=== PATIENT | female | born 1945 | race Hispanic/Latino ===

== ENCOUNTER → 2018-06-25 | Day surgery (SDC) | payer MEDICARE ==
--- NOTE | 2018-06-21 12:13 | Diagnostic Imaging Report ---
Exam: KUB - 2 views Clinical History: Renal stone symptoms on left Comparison: None. Findings: Nonobstructive bowel gas pattern. There is abundant stool throughout the colon. Bowel gas partially obscures visualization of the kidneys. There are two calcifications overlying the right kidney measuring 7 mm each. No evidence of calcification overlying the left kidney or the expected location of the ureters. No acute osseous abnormality. Mild degenerative changes of the lower lumbar spine and bilateral hips. Please refer to the concurrently performed chest radiograph for intrathoracic findings. Impression: Two 7 mm calcifications overlying the right kidney, likely representing renal stones. No evidence of ureteral or left sided renal stone, although bowel gas partially limits evaluation of the left kidney. Signed by: Dr. Toyin Torrez MD on 06/21/2018 12:10 PM
[2018-06-21 12:18] LABS: BASOPHILS % 0.3 % (0.0-1.0); EOSINOPHILS # (AUTO) 0.2 (0.0-0.4); EOSINOPHILS % 1.7 % (0.0-6.0); HEMATOCRIT 43.9 % (34.2-44.1); HEMOGLOBIN 12.8 g/dL (12.0-16.0); LYMPHOCYTES # (AUTO) 2.2 (1.0-3.2); LYMPHOCYTES % 24.4 % (18.0-39.1); MEAN CORPUSCULAR HEMOGLOBIN 25.9 pg (28-32); MEAN CORPUSCULAR HGB CONC 29.2 g/dL (31-35); MEAN CORPUSCULAR VOLUME 88.7 fL (81-99); MONOCYTES # (AUTO) 0.5 (0.2-0.8); NEUTROPHILS # (AUTO) 6.1 (2.1-6.9); PLATELET COUNT 245 x10e3/uL (140-360); RED BLOOD COUNT 4.95 x10e6/uL (3.6-5.1); RED CELL DISTRIBUTION WIDTH 16.6 % (11.7-14.4)
[2018-06-21 12:28] LABS: ANION GAP 15.5 mmol/L (8-16); BLOOD UREA NITROGEN 31 mg/dL (7-26); BUN/CREATININE RATIO 37 (6-25); CALCIUM 9.9 mg/dL (8.4-10.2); CARBON DIOXIDE 22 mmol/L (22-29); CHLORIDE 107 mmol/L (98-107); CREATININE, SERUM 0.83 mg/dL (0.57-1.11); EST GLOMERULAR FILTRATION RATE > 60 ML/MIN (60-); GLUCOSE 92 mg/dL (74-118); POTASSIUM 4.5 mmol/L (3.5-5.1); SODIUM 140 mmol/L (136-145)
--- NOTE | 2018-06-21 12:53 | Diagnostic Imaging Report ---
EXAMINATION: CHEST 2 VIEWS INDICATION: Abdominal pain, suspected kidney stone. COMPARISON: None FINDINGS: TUBES and LINES: None. LUNGS: Lungs are well inflated. There is no evidence of pneumonia or pulmonary edema. Mild linear opacity in the left lower lung could represent subsegmental atelectasis or scarring. PLEURA: Mild blunting of the right costophrenic angle could represent scarring or trace effusion. No evidence of pneumothorax. HEART AND MEDIASTINUM: The cardiomediastinal silhouette is unremarkable. BONES AND SOFT TISSUES: No acute osseous abnormality. UPPER ABDOMEN: No free air under the diaphragm. IMPRESSION: No acute radiographic abnormality. Signed by: Dr. Toyin Torrez MD on 06/21/2018 12:49 PM
[~2018-06-25] MED LIST: ATORVASTATIN CA10 MG PO; BELLADONNA/OPIUM 30 MG SUPP RC ONE; CEFTRIAXONE SOD 1 GM/NS 50 ML 50 ML IV ONE; CYMBALTA30 MG; DEXAMETHASONE SOD PHOS INJ 4 MG/ML VIAL ONE; GLIMEPIRIDE2 MG PO; IOPAMIDOL 610MG/1ML 300 MG/ML VIAL IV ONE; JANUVIA100 MG PO; LABETALOL HCL 5 MG/ML 20ML VIAL ONE; LIDOCAINE HCL 2% LOCAL INJ 5 ML SDV VIAL INJ ONE; LISINOPRIL10 MG PO; ONDANSETRON HCL INJ 2MG/ML 2ML 2 MG/ML VIAL ONE; PIOGLITAZONE HC45 MG PO; PROPOFOL IV EMULSION 10 MG/ML 20 ML VIAL ONE; SEVOFLURANE INHAL SOLN 250 ML PEN BTL ONE
[2018-06-25 16:15] VITALS: BP 121/67
--- NOTE | 2018-07-12 11:53 | Operative Report ---
DATE OF PROCEDURE: 06/25/2018 SURGEON: Butch Wilkerson MD PREOPERATIVE DIAGNOSES: 1. Right nephrolithiasis. 2. Urinary tract infection. 3. Mixed-type urinary incontinence. POSTOPERATIVE DIAGNOSES: 1. Right nephrolithiasis. 2. Urinary tract infection. 3. Mixed-type urinary incontinence. 4. Atrophic (senile) vaginitis. OPERATIONS PERFORMED: 1. Right-sided extracorporeal shock wave lithotripsy (separate-staged procedure performed for nephrolithiasis). 2. Cystourethroscopy with bilateral ureteral catheterization and retrograde ureteropyelography (separate-staged procedure performed for the urinary tract infections). 3. Interpretation of retrograde ureteropyelography. 4. Supervision of fluoroscopy, no radiologist present. ANESTHESIA: General. COMPLICATIONS: None. CLINICAL SUMMARY: Khushbu Callaway is a 73-year-old woman with the above preoperative diagnoses. She was brought for the above procedures. She is aware of the risks of bleeding, infection, injury to adjacent structures, and need for additional procedures, and elected to proceed. OPERATIVE PROCEDURE IN DETAIL: Informed consent was verified. Khushbu Callaway was properly identified, taken to the operating room, and placed on the lithotripsy table in supine position. Anesthesia was uneventfully begun. The patient's right nephrolithiasis was localized with biplanar fluoroscopy. A total of 3000 shocks were delivered to the 7 mm stone located in the right kidney. Excellent fragmentation was noted. The patient was carefully and gently repositioned into dorsal lithotomy position with all pressure points well padded. Her genitalia were prepared and draped in the usual fashion. A 22.5-Wolof cystoscope sheath with an obturator in place was atraumatically inserted into the patient's urethra and the bladder was drained. Panendoscopy revealed grade 1 trabeculations, but no tumors, no stones, and no diverticula and normally positioned and configured ureteral orifices were identified. The ureteral catheter was used to cannulate each ureter and retrograde ureteropyelograms were performed. Interpretation of Retrograde Ureteropyelography: Contrast was instilled in retrograde fashion bilaterally. There were no tumors, no stones, and no diverticula. Unobstructed drainage was observed bilaterally fluoroscopically. On the left hand side, there were no tumors, no stones, no diverticula, and unobstructed drainage was observed fluoroscopically. On the right-hand side, there was filling defect corresponding to the location, where we performed lithotripsy. These were attributed to stone fragments as well as blood clots from the lithotripsy. Unobstructed drainage was observed fluoroscopically and there was no hydronephrosis. The patient's bladder was then drained and cystoscope was withdrawn. Pelvic examination under anesthesia revealed atrophic (senile) vaginitis. No suspicious mucosal lesions were identified. There were no abnormal pelvic masses that could be appreciated. The patient was then uneventfully reversed from anesthesia and taken to the recovery room in stable condition. There were no complications to the procedure. She tolerated the procedure well. Exclusive postoperative instructions were given. We will follow the patient up in the office, and of course on a long-term basis. Butch Wilkerson MD OH/MODL /[id number] cc: Vashti Bullock MD
--- OUTSIDE RECORDS SUMMARY | 2018-07-14 10:04 | XMS REPORT ---
Author Author [facility] Address Unknown Phone Unavailable Care Team Providers Care Client Finance Analyst Name Role Phone STEPHANIE ANN CARDONA PP Unavailable ISAÍAS ARELLANO Unavailable Unavailable Payers Payer Name Policy Type Policy Number Effective Date Expiration Date Problems This patient has no known problems. Allergies, Adverse Reactions, Alerts This patient has no known allergies or adverse reactions. Medications This patient has no known medications. Encounters Start Date/Time End Date/Time Encounter Type Admission Type Attending [facility] Care Facility Care Department Encounter ID 2017-08-03 14:31:00 2017-08-03 14:31:00 Outpatient C [facility] MED [id number] Results Test Description Test Time Test Comments Text Results Atomic Results Result Comments CHEST 2 VIEWS 2018-06-21 12:46:00 [facility] [address] [place] [address] Patient Name: ADELFO SEWELL MR #: [id number] : 1945 Age/Sex: 73/F Req #: [id number] Adm Physician: Ordered by: ISAÍAS ARELLANO MD Report #: [id number] Location: OR Room/Bed: Procedure: [id number] DX/CHEST 2 VIEWS Exam Date: 06/21/18 Exam Time: 1150 REPORT STATUS: Signed EXAMINATION: CHEST 2 VIEWS INDICATION: Abdominal pain, suspected kidney stone. COMPARISON: None FINDINGS: TUBES and LINES: None. LUNGS: Lungs are well inflated. There is no evidence of pneumonia or pulmonary edema. Mild linear opacity in the left lower lung could represent subsegmental atelectasis or scarring. PLEURA: Mild blunting of the right costophrenic angle could represent scarring or trace effusion. No evidence of pneumothorax. HEART AND MEDIASTINUM: The cardiomediastinal silhouette is unremarkable. BONES AND SOFT TISSUES: No acute osseous abnormality. UPPER ABDOMEN: No free air under the diaphragm. IMPRESSION: No acute radiographic abnormality. Signed by: Dr. Sarah Polanco MD on 06/21/2018 12:49 PM Dictated By: SARAH POLANCO MD 1249 Transcribed By: KAI on 06/21/18 1249 COPY TO: ISAÍAS ARELLANO MD ABDOMEN-1VIEW (KUB) 2018-06-21 12:05:00 [place] [address] Patient Name: ADELFO SEWELL MR #: [id number] : 1945 Age/Sex: 73/F Req #: [id number] Adm Physician: Ordered by: ISAÍAS ARELLANO MD Report #: [id number] Location: OR Room/Bed: Procedure: [id number] DX/ABDOMEN-1VIEW (KUB) Exam Date: 06/21/18 Exam Time: 1150 REPORT STATUS: Signed Exam: KUB - 2 views Clinical History: Renal stone symptoms on left Comparison: None. Findings: Nonobstructive bowel gas pattern. There is abundant stool throughout the colon. Bowel gas partially obscures visualization of the kidneys. There are two calcifications overlying the right kidney measuring 7 mm each. No evidence of calcification overlying the left kidney or the expected location of the ureters. No acute osseous abnormality. Mild degenerative changes of the lower lumbar spine and bilateral hips. Please refer to the concurrently performed chest radiograph for intrathoracic findings. Impression: Two 7 mm calcifications overlying the right kidney, likely representing renal stones. No evidence of ureteral or left sided renal stone, although bowel gas partially limits evaluation of the left kidney. Signed by: Dr. Sarah Polanco MD on 06/21/2018 12:10 PM Dictated By: SARAH POLANCO MD 1210 Transcribed By: KAI on 06/21/18 1210 COPY TO: ISAÍAS ARELLANO MD PENG MAMMO SCREENING SAUL W/CAD 2017-08-13 16:07:35 [facility] MAMMO SCREENING SAUL W/CADZ12.39: ENCOUNTER FOR [facility] SCREENING FOR MALIGNANT NEOPLASM OF BREAST.Dictation Location: [id number] Information: Screening mammogram.Technique: Bilateral digital mammogram with computer assisted diagnosis. Bilateral CC and MLO views were obtained.Comparison: None.Findings: There are scattered areas of fibroglandular density. Scattered benigntype and vascular calcifications are present bilaterally. There are nosuspicious masses or microcalcifications.IMPRESSION: No mammographic evidence of malignancy.ACR BI- RADS CATEGORY: 2-BENIGN RECOMMENDATION: FOLLOW UP MAMMOGRAM IN ONE YEAR XR SHOULDER 2+V.COMPLETE-RIGHT 2017-08-03 17:16:16 XR SHOULDER 2+V.COMPLETE- RIGHTLOCATION: R16 INDICATION:M25.519: PAIN IN UNSPECIFIED SHOULDERCOMPARISON: None.DISCUSSION:Frontal internal/external rotation and Y view radiographs of the rightshoulder were submitted for interpretation (4 total)Mild bone demineralization limits evaluation. No definite acute fracture or dislocation is seen. Mildly displaced fractures of the right fourth rib (posteriorly andlaterally) appear old.Mild to moderate acromioclavicular and glenohumeral arthrosis arepresent.Mild multilevel spondylosis is partially visualized.Mild aortic calcifications are partially visualized.IMPRESSION:1. No definite acute osseous abnormalities. 2. Mildly displaced fractures of the right fourth rib (posteriorly andlaterally) appear old.3. 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
--- OUTSIDE RECORDS SUMMARY | 2018-07-14 10:04 | XMS REPORT | Clinical Summary ---
Author Author [facility] Address Unknown Phone Unavailable Care Team Providers Care Supervisor Process Testing Name Role Phone Vashti Bullock MD PCP Allergies No Known Allergies Medications End Date Status Medication Sig Dispensed Refills Start Date Active glimepiride (AMARYL) 2 MG TK 1 T PO QAM 0 tablet 6 Active atorvastatin (LIPITOR) 10 TK 1 T PO HS 0 MG tablet 6 Active enalapril (VASOTEC) 20 MG TK 1 T PO QAM 0 tablet 6 Active aspirin (ECOTRIN) 81 MG TK 1 T PO QD 0 enteric coated tablet 6 Active cromolyn (OPTICROM) 4 % 0 ophthalmic solution 6 Active PRECISION XTRA TEST strip 0 test strips 6 Active LANCETS,ULTRA THIN misc USE TID 1 6 Active omega-3 acid ethyl esters TK 2 CS PO 0 (LOVAZA) 1 gram capsule BID 6 Active JANUMET XR 100-1,000 mg TK 1 T PO QAM 0 tablet, ER multiphase 24 6 hr Active ergocalciferol TK ONE C PO 0 (ERGOCALCIFEROL) 50,000 ONCE A MONTH 6 unit capsule Active mirabegron (MYRBETRIQ) 50 Take 1 tablet 90 tablet 2 mg tablet extended (50 mg total) 6 release 24 hrIndications: by mouth Urge incontinence of daily. urine Active ondansetron (ZOFRAN) 8 MG TK 1 T PO TID 0 tablet 7 Active VOLTAREN 1 % gel JIM EXT AA 0 QID 6 Active gabapentin (NEURONTIN) 0 300 mg capsule 7 Active MICRO THIN LANCETS 33 0 gauge misc 7 Active meloxicam (MOBIC) 15 mg TK 1 T PO QAM 0 tablet 7 Active sulfamethoxazole-trimetho 0 prim (BACTRIM DS) 800-160 7 mg per tablet 08/18/2017 estradiol (ESTRACE) 0.01 Apply nightly 42.5 g 11 % (0.1 mg/gram) vaginal for 2 weeks, 7 cream then 2 times per week Active Problems Problem Noted Date Urge incontinence of urine 12/24/2015 Kidney stones 12/24/2015 Cystocele 12/24/2015 Social History Date Tobacco Use Types Packs/Day Years Used Never Smoker Alcohol Use Drinks/Week oz/Week Comments No Sex Assigned at Date Recorded Not on file Industry Job Start Date Occupation Not on file Not on file Not on file Travel End Travel History Travel Start No recent travel history available. Last Filed Vital Signs Not on file Plan of Treatment Health Maintenance Due Date Last Done Comments BREAST CANCER SCREENING 1997 COLON CANCER SCREENING 1997 SHINGLES VACCINES (#1) 1997 65+ PNEUMOCOCCAL VACCINE 2012 (1 of 2 - PCV13) PNEUMOCOCCAL 2012 POLYSACCHARIDE VACCINE AGE 65 AND OVER INFLUENZA VACCINE 12/16/2017 Results Not on fileafter 07/13/2017 Insurance Payer Benefit Subscriber ID Type Phone Address Plan / Group AETNA MEDICARE AETNA xxxxxxxx HMO MEDICARE HMO/PPO [facility] Advance Directives Patient has advance care planning documents on file. For more information, soo e contact: [address] [place] [address]
== END | disposition home or self-care (01) ==
LOC: OR 10:54
PROVIDERS: ATTEND Urology
DX: N20.0 Calculus of kidney (principal); N39.0 Urinary tract infection, site not specified; N32.81 Overactive bladder; N39.46 Mixed incontinence; N95.2 Postmenopausal atrophic vaginitis; N36.41 Hypermobility of urethra; N81.89 Other female genital prolapse; N32.89 Other specified disorders of bladder; I10 Essential (primary) hypertension; E11.9 Type 2 diabetes mellitus without complications; E78.00 Pure hypercholesterolemia, unspecified; Z01.810 Encounter for preprocedural cardiovascular examination; Z01.818 Encounter for other preprocedural examination; Z79.84 Long term (current) use of oral hypoglycemic drugs; Z68.31 Body mass index [BMI] 31.0-31.9, adult
CPT/HCPCS: 36415 ×2; 50590; 71046; 74018; 80048; 82948; 83970; 84550; 85025; 93005; J0696; J1100; J2001; J2405; J2704; J3490; Q9967

== ENCOUNTER → 2018-12-10 | Day surgery (SDC) | payer MEDICARE ==
[2018-12-08 09:16] LABS: BASOPHILS % 0.1 % (0.0-1.0); EOSINOPHILS # (AUTO) 0.2 (0.0-0.4); EOSINOPHILS % 2.5 % (0.0-6.0); HEMATOCRIT 35.8 % (34.2-44.1); HEMOGLOBIN 10.9 g/dL (12.0-16.0); LYMPHOCYTES # (AUTO) 1.8 (1.0-3.2); LYMPHOCYTES % 25.8 % (18.0-39.1); MEAN CORPUSCULAR HGB CONC 30.4 g/dL (31-35); MEAN CORPUSCULAR VOLUME 85.2 fL (81-99); MONOCYTES # (AUTO) 0.4 (0.2-0.8); MONOCYTES % 5.7 % (4.4-11.3); NEUTROPHILS # (AUTO) 4.5 (2.1-6.9); NEUTROPHILS % 65.6 % (38.7-80.0); PLATELET COUNT 262 x10e3/uL (140-360); RED CELL DISTRIBUTION WIDTH 16.3 % (11.7-14.4)
[2018-12-08 09:34] LABS: ANION GAP 13.6 mmol/L (8-16); CALCIUM 9.5 mg/dL (8.4-10.2); CREATININE, SERUM 1.14 mg/dL (0.57-1.11); POTASSIUM 4.6 mmol/L (3.5-5.1)
--- NOTE | 2018-12-08 09:39 | Diagnostic Imaging Report ---
EXAMINATION: CHEST 2 VIEWS INDICATION: Pre-operative COMPARISON: Chest radiograph of 06/21/2018 FINDINGS: TUBES and LINES: None. LUNGS: The lungs are moderately inflated. No focal consolidation or pulmonary edema. Mild subsegmental atelectasis at both lung bases. PLEURA: No pleural effusion or pneumothorax. HEART AND MEDIASTINUM: The cardiomediastinal silhouette is normal in size and contour. BONES AND SOFT TISSUES: No acute fracture or dislocation. Old healed fracture deformity of right posterior fourth rib. Degenerative changes of the visualized spine. UPPER ABDOMEN: No free air under the diaphragm. IMPRESSION: No focal pneumonia or pulmonary edema. Mild bibasilar subsegmental atelectasis. Signed by: Dinh Abad MD on 12/08/2018 9:36 AM
--- NOTE | 2018-12-08 11:26 | Diagnostic Imaging Report ---
Exam: KUB - 2 views Clinical History: Preoperative Comparison: KUB of 06/21/2018 Findings: The previously seen calcific densities overlying the right kidney are not seen on today's radiograph. No abnormal calcifications. Nonobstructive bowel gas pattern. Degenerative changes of the visualized spine. Situs post cholecystectomy. Impression: Previously visualized calcific densities overlying the right kidney are not seen on today's radiograph. Signed by: Dinh Abad MD on 12/08/2018 11:22 AM
[~2018-12-10] MED LIST changes: +AUGMENTIN 875-1 EACH PO; +B&O 60MG R/S 60 MG SUPP PR ONE; -BELLADONNA/OPIUM 30 MG SUPP RC ONE; +BENTYL10 MG/1 ML PO; +CYMBALTA30 MG PO; +HYDROCHLOROTHIA25 MG PO; -LABETALOL HCL 5 MG/ML 20ML VIAL ONE; +LISINOPRIL-HCT1 EAC2 PO; +MPAP PO; +PREDNISONE10 MG PO; +RANITIDINE HCL150 M1 PO; +RANITIDINE HCL150 MG PO; +SULFAMETHOXAZO1 EAC1 PO; +TYLENOL ARTHRITIS PO
--- OUTSIDE RECORDS SUMMARY | 2018-12-10 05:18 | XMS REPORT | Clinical Summary ---
Author Author [facility] Address Unknown Phone Unavailable Care Team Providers Care Home Health Specialist Name Role Phone Vashti Bullock MD PCP [...] (BACTRIM DS) 800-160 7 mg per tablet Active Problems Problem Noted Date Urge incontinence [...] Last Done Comments BREAST CANCER SCREENING 1997 COLONOSCOPY SCREENING 1997 SHINGLES VACCINES (#1) 1997 65+ PNEUMOCOCCAL VACCINE 2012 (1 of 2 - PCV13) INFLUENZA VACCINE 12/16/2018 Results Not on fileafter 12/09/2017 Insurance Type Payer Benefit Subscriber ID Effective Phone Address Plan / Dates Group HMO AETNA MEDICARE AETNA xxxxxxxx 2015-P MEDICARE resent HMO/PPO [facility] Advance Directives Patient has advance care planning documents on file. For more information, soo ramirez contact: [address] [place] [address]
[2018-12-10 08:53] VITALS: BP 124/57
--- NOTE | 2019-02-10 05:42 | Operative Report ---
DATE OF PROCEDURE: 12/10/2018 SURGEON: Butch Wilkerson MD PREOPERATIVE DIAGNOSES: 1. Right nephrolithiasis. 2. Urinary tract infection. 3. Mixed type urinary incontinence. POSTOPERATIVE DIAGNOSES: 1. Right nephrolithiasis. 2. Urinary tract infection. 3. Mixed type urinary incontinence. 4. Potential for right renal colic. 5. Atrophic (senile) vaginitis. OPERATION PERFORMED: Note these were all staged procedures as part of multi-staged and multi-step process in managing the patient's urolithiasis. 1. Right-sided extracorporeal shockwave lithotripsy (separate approach because of 8 mm right lower calyceal stone burden). 2. Cystourethroscopy with bilateral ureteral catheterization and retrograde ureteropyelography (separate procedure performed to evaluate the upper tract in light of the urinary tract infections). 3. Interpretation of retrograde ureteropyelography. 4. Supervision of fluoroscopy, no radiologist present. 5. Cystourethroscopy and insertion of right indwelling ureteral stent (separate procedure performed to avoid renal colic). 6. Pelvic examination under anesthesia. ANESTHESIA: General. COMPLICATIONS: None. CLINICAL SUMMARY: Khushbu Callaway is a 73-year-old woman with the above preoperative diagnoses. She is brought for the above procedures. She is aware of the risks of bleeding, infection, injury to adjacent structures, need for additional procedures and elected to proceed. OPERATIVE PROCEDURE IN DETAIL: Informed consent was verified. Khushbu Callaway was properly identified and taken to the operating room, and placed in the lithotripsy table in supine position. Anesthesia was uneventfully begun. The patient's right nephrolithiasis was localized with biplanar fluoroscopy. A total of 3000 shocks were delivered with excellent fragmentation. The patient was then carefully and gently repositioned in dorsal lithotomy position with all pressure points well padded. Her genitalia were prepared and draped in the usual sterile fashion. The cystoscope sheath with obturator in place was atraumatically inserted into the patient's urethra and bladder was drained. Panendoscopy revealed no suspicious lesions, no tumors, no stones, and worse than usual mucosal vesicles that were yellowish in color and potentially filled with crystal like material. These were not suspicious in nature. Mild trabeculations were noted. A ureteral catheter was used to cannulate each ureter and retrograde ureteral pyelograms were performed. With cystoscopic fluoroscopic guidance, a left-sided indwelling ureteral stent was then placed and it was coiled in the patient's kidneys as well as the patient's bladder. The retaining suture was cut short. Interpretation of retrograde ureteropyelography contrast was instilled in retrograde fashion bilaterally. The left side was unremarkable. There were no tumors and there were no stones. There was no hydronephrosis. Unobstructed drainage was observed. The right hand side exhibited a filling defect corresponding to the location, where we performed lithotripsy consistent with stone burden and blood clot. The stent was in good position and coiled in the patient's kidney as well as the patient's bladder at the end of the case. The patient's bladder was drained. Cystoscope was withdrawn. Pelvic examination revealed atrophic (senile) vaginitis. No abnormal palpable pelvic masses could be appreciated. There were no obvious mucosal lesions. The patient was then uneventfully reversed from anesthesia and taken to recovery room in stable condition. There were no complications during the procedure. She tolerated the procedure well. Explicit postoperative instructions were given. We will return the patient to the operating room in several weeks to remove her stent, perform right ureteroscopy, and potentially use the laser if needed. Butch MD [place]/MODL /[id number] cc: Vashti Bullock MD
== END | disposition home or self-care (01) ==
LOC: OR 05:00
PROVIDERS: ATTEND Urology
DX: N39.0 Urinary tract infection, site not specified (principal); N39.46 Mixed incontinence; Z87.442 Personal history of urinary calculi; N32.81 Overactive bladder; R39.14 Feeling of incomplete bladder emptying; N81.89 Other female genital prolapse; N36.41 Hypermobility of urethra; N95.2 Postmenopausal atrophic vaginitis; N20.0 Calculus of kidney; N23 Unspecified renal colic; Z01.810 Encounter for preprocedural cardiovascular examination; Z01.812 Encounter for preprocedural laboratory examination; Z01.811 Encounter for preprocedural respiratory examination
CPT/HCPCS: 36415 ×2; 50590; 52332; 71046; 74018; 80048; 82948; 85025; 93005; C1758; C2617; J0696; J1100; J2001; J2405; J2704; Q9967

== ENCOUNTER → 2019-01-28 | Day surgery (SDC) | payer MEDICARE ==
[2019-01-24 12:21] LABS: BASOPHILS % 0.2 % (0.0-1.0); EOSINOPHILS # (AUTO) 0.1 (0.0-0.4); EOSINOPHILS % 2.1 % (0.0-6.0); HEMOGLOBIN 10.2 g/dL (12.0-16.0); LYMPHOCYTES # (AUTO) 1.7 (1.0-3.2); LYMPHOCYTES % 25.7 % (18.0-39.1); MEAN CORPUSCULAR HEMOGLOBIN 25.8 pg (28-32); MEAN CORPUSCULAR HGB CONC 30.9 g/dL (31-35); MEAN CORPUSCULAR VOLUME 83.5 fL (81-99); MONOCYTES # (AUTO) 0.3 (0.2-0.8); MONOCYTES % 4.8 % (4.4-11.3); NEUTROPHILS # (AUTO) 4.4 (2.1-6.9); NEUTROPHILS % 66.7 % (38.7-80.0); PLATELET COUNT 269 x10e3/uL (140-360); RED BLOOD COUNT 3.95 x10e6/uL (3.6-5.1); RED CELL DISTRIBUTION WIDTH 16.4 % (11.7-14.4)
[2019-01-24 12:36] LABS: ANION GAP 14.3 mmol/L (8-16); CALCIUM 10.2 mg/dL (8.4-10.2); CREATININE, SERUM 1.16 mg/dL (0.57-1.11); POTASSIUM 4.3 mmol/L (3.5-5.1)
--- NOTE | 2019-01-24 13:08 | Diagnostic Imaging Report ---
EXAMINATION: CHEST 2 VIEWS INDICATION: Pre-operative COMPARISON: Multiple prior chest radiograph most recently of 12/08/2018 FINDINGS: LINES/TUBES:None LUNGS:The lungs are well-inflated. No focal consolidation or pulmonary edema. Bibasilar subsegmental atelectasis. PLEURA:No pleural effusion or pneumothorax. MEDIASTINUM:The cardiomediastinal silhouette appears normal in size and shape. BONES/SOFT TISSUES:Multiple deformities of the right fourth posterior and lateral rib, likely related to healed fracture. No acute osseous injury. Degenerative changes of the visualized spine. ABDOMEN:No free air under the diaphragm. IMPRESSION: No focal pneumonia or pulmonary edema. Bibasilar subsegmental atelectasis. Signed by: Dinh Abad MD on 01/24/2019 1:05 PM
--- NOTE | 2019-01-24 13:13 | Diagnostic Imaging Report ---
Exam: KUB - 2 views Indication: Preoperative Comparison: None Findings: Right internal nephroureteral stent in place. The distal loop is not fully formed and terminates near the expected location of the ureterovesical junction. Approximately 7 mm calcific density overlying the right kidney lower pole may represent renal calculus versus intraluminal bowel contents. No other radiographically apparent renal calculi. Nonobstructive bowel gas pattern. No free air. Multilevel degenerative changes of the visualized spine. The partially visualized lung bases appear clear. Impression: Right nephroureteral stent in place. 7 mm calcific density overlying the right kidney lower pole may represent renal calculus versus intraluminal bowel contents. Signed by: Dinh Abad MD on 01/24/2019 1:09 PM
[~2019-01-28] MED LIST changes: +CEFTRIAXONE SOD 1 GM/NS 50 ML 0 ML IV ONE; -CEFTRIAXONE SOD 1 GM/NS 50 ML 50 ML IV ONE; -DEXAMETHASONE SOD PHOS INJ 4 MG/ML VIAL ONE; +EPHEDRINE SULFATE INJ 50 MG/10 ML SYR ONE; +FENTANYL CITRATE/PF 100MCG/2 ML INJ ONE
--- OUTSIDE RECORDS SUMMARY | 2019-01-28 08:08 | XMS REPORT | Clinical Summary ---
Author Author [employer] [facility] [facility] Address Unknown Phone Unavailable Care Team Providers Care Power Plant Electrician Name Role Phone Vashti Bullock MD PCP [...] Use Types Packs/Day Years Used Never Smoker Drinks/Week oz/Week Comments Alcohol Use No Sex Assigned at Date Recorded Not [...] INFLUENZA VACCINE 12/16/2018 Results Not on fileafter 01/27/2018 Insurance Type Payer Benefit Subscriber ID Effective Phone Address Plan / Dates Group HMO AETNA MEDICARE AETNA xxxxxxxx 2015-P MEDICARE resent HMO/PPO [facility] Advance Directives For more information, please contact: [phone] Patient Pricing Intern Explanation Type Date Recorded Advance Directives, Living Will and Medical Power of Radiographer Angiogram
[2019-01-28 13:20] VITALS: BP 103/63
--- NOTE | 2019-01-28 17:46 | Diagnostic Imaging Report ---
Exam: Retrograde Total fluoroscopy time 30 minutes Total images 12 Findings: Retrograde program was performed intraoperatively by the urology service. Radiology was not present during the procedure. The right ureter was cannulized and opacified with contrast. No evidence of intraluminal filling defect or stricture is noted in the visualized ureter. Moderate hydronephrosis is noted. Signed by: Dr. Fernando Franks MD on 01/28/2019 5:43 PM
--- NOTE | 2019-03-15 05:10 | Operative Report ---
DATE OF PROCEDURE: 01/28/2019 SURGEON: Butch Wilkerson MD PREOPERATIVE DIAGNOSES: 1. Right nephrolithiasis. 2. Right indwelling ureteral stent. POSTOPERATIVE DIAGNOSES: 1. Right nephrolithiasis. 2. Right indwelling ureteral stent. 3. Minimal less than grade 1 cystocele. 4. Minimal less than grade 1 rectocele. 5. Atrophic (senile) vaginitis. OPERATIONS PERFORMED: Note, these were all staged procedures as part of multi-staged and multi-step process in managing the patient's urolithiasis. 1. Cystourethroscopy with complicated removal of right indwelling ureteral stent (separate procedure performed with separate scope for the diagnosis of stent). 2. Right flexible ureteral pyeloscopy (separate procedure performed for the right nephrolithiasis). 3. Radiological services with supervision and interpretation of ureteroscopy. 4. Interpretation of retrograde ureteropyelography. 5. Supervision of fluoroscopy, no radiologist present. 6. Pelvic examination under anesthesia. ANESTHESIA: General. COMPLICATIONS: None. CLINICAL SUMMARY: Khushbu Callaway is a 73-year-old woman, who underwent left ESWL and stent placement. She was brought for the above procedures. She and the family were aware of the risks of bleeding, infection, injury to adjacent structures, need for additional procedures and elected to proceed. OPERATIVE PROCEDURE IN DETAIL: Informed consent was verified. Khushbu Callaway was properly identified, and taken to the operating room placed on the cystoscopy table in supine position. Anesthesia was uneventfully begun. The patient was then carefully and gently repositioned in the dorsal lithotomy position with all pressure points well padded. Her genitalia were prepared and draped in usual sterile fashion. The cystoscope sheath with obturator in place was atraumatically inserted into the patient's urethra and the bladder was drained. Panendoscopy of the bladder revealed no suspicious mucosal lesions, no tumors, no stones, and no diverticula normally position configured, ureteral orifices were identified. There was a string emerging the right ureteral orifice. This is a string that was attached to the stent. For some reason the stent migrated proximally. The graspers were then utilized to grasp the string and bring the stent out to the patient's bladder. A guidewire was then placed alongside the stent and guided to the level of the patient's kidney. The stent was then grasped, completely removed and discarded. Semi-rigid ureteroscope was then inserted alongside the guidewire and guided into the distal ureter. There were no tumors, no stones, no diverticula. No suspicious lesions. Contrast was injected. Flexible ureteroscope was then brought up over the guidewire and guided to the level of the patient's kidney. Panendoscopy revealed Donald's plaques present. No tumors, no stones, no diverticula. No suspicious mucosal lesions were identified. The ureter was re-examined including the upper portion as we exited with the ureteroscope. It exhibited no stones, no diverticula, no suspicious lesions, no strictures. The patient's bladder was drained. Cystoscope was withdrawn. Interpretation of retrograde ureteropyelography contrast was instilled in retrograde fashion on the right-hand side by the ureteroscope. There was chronic appearing fullness. There were no suspicious lesions. There was no extravasation. There was some calyceal blunting. The ureter was unremarkable. Unobstructed drainage was observed fluoroscopically. The patient's pelvic examination under anesthesia revealed a very minimal cystocele with minimal rectocele. There was atrophic (senile) vaginitis. No abnormal palpable pelvic masses could be appreciated. There were no obvious mucosal lesions. The patient was then uneventfully reversed from anesthesia and taken to recovery room in stable condition. Explicit postoperative instructions were given. We will follow the patient up in the office at which point in time, we will begin our metabolic stone workup to evaluate the risk for developing additional urolithiasis and for preventing future stones. Butch Wilkerson MD [place]/MOD[facility] /[id number] cc: Vashti Bullock MD
== END | disposition home or self-care (01) ==
LOC: OR 08:06
PROVIDERS: ATTEND Urology
DX: N20.0 Calculus of kidney (principal); Z46.6 Encounter for fitting and adjustment of urinary device; N28.89 Other specified disorders of kidney and ureter; N39.0 Urinary tract infection, site not specified; N32.81 Overactive bladder; N39.46 Mixed incontinence; N81.10 Cystocele, unspecified; N81.6 Rectocele; E78.5 Hyperlipidemia, unspecified; E11.9 Type 2 diabetes mellitus without complications; K21.9 Gastro-esophageal reflux disease without esophagitis; N95.2 Postmenopausal atrophic vaginitis; Z01.810 Encounter for preprocedural cardiovascular examination; Z01.812 Encounter for preprocedural laboratory examination; Z01.818 Encounter for other preprocedural examination; Z79.84 Long term (current) use of oral hypoglycemic drugs; Z68.33 Body mass index [BMI] 33.0-33.9, adult
CPT/HCPCS: 36415; 71046; 74018; 74420; 80048; 82948; 85025; 87086; 87186; 93005; J0696; J2001; J2405; J3010

== ENCOUNTER 2019-01-29 18:29 | Inpatient (IN) | payer MEDICARE ==
[~2019-01-29] VITALS: Ht 160 cm; Wt 103.9 kg
[~2019-01-29 18:29] MED LIST changes: -AUGMENTIN 875-1 EACH PO; -B&O 60MG R/S 60 MG SUPP PR ONE; -BENTYL10 MG/1 ML PO; -CEFTRIAXONE SOD 1 GM/NS 50 ML 0 ML IV ONE; -CYMBALTA30 MG PO; -EPHEDRINE SULFATE INJ 50 MG/10 ML SYR ONE; -FENTANYL CITRATE/PF 100MCG/2 ML INJ ONE; -HYDROCHLOROTHIA25 MG PO; -IOPAMIDOL 610MG/1ML 300 MG/ML VIAL IV ONE; -LIDOCAINE HCL 2% LOCAL INJ 5 ML SDV VIAL INJ ONE; -ONDANSETRON HCL INJ 2MG/ML 2ML 2 MG/ML VIAL ONE; -PROPOFOL IV EMULSION 10 MG/ML 20 ML VIAL ONE; -RANITIDINE HCL150 M1 PO; -SEVOFLURANE INHAL SOLN 250 ML PEN BTL ONE
--- OUTSIDE RECORDS SUMMARY | 2019-01-29 18:33 | XMS REPORT | Clinical Summary ---
Author Author [facility] Address Unknown Phone Unavailable Care Team Providers Care Wood Cutter Name Role Phone Vashti Bullock MD PCP [...] INFLUENZA VACCINE 12/16/2018 Results Not on fileafter 01/28/2018 Insurance Type Payer Benefit Subscriber ID Effective Phone Address Plan / Dates Group HMO AETNA MEDICARE AETNA xxxxxxxx 2015-P MEDICARE resent HMO/PPO [facility] Advance Directives For more information, please contact: [phone] Patient Wrapper Opener Explanation Type Date Recorded Advance Directives, Living Will and Medical Power of Chief Specialist Leed
[2019-01-29] MEDS ORDERED: SODIUM CHLORIDE 0.9% 1000ML 1,000 ML IV STA (19:21)
[2019-01-29] MEDS ORDERED: ACETAMINOPHEN 325 MG TAB PO PRN (19:30)
[2019-01-29] MEDS ORDERED: CEFTRIAXONE SOD 1 GM VIAL IM ONE (21:00)
[2019-01-29 21:57] LABS: BASOPHILS % 0.1 % (0.0-1.0); EOSINOPHILS % 0.4 % (0.0-6.0); HEMATOCRIT 34.9 % (34.2-44.1); LYMPHOCYTES # (AUTO) 0.9 (1.0-3.2); MEAN CORPUSCULAR HEMOGLOBIN 26.2 pg (28-32); MEAN CORPUSCULAR HGB CONC 31.5 g/dL (31-35); MEAN CORPUSCULAR VOLUME 83.1 fL (81-99); MONOCYTES # (AUTO) 0.5 (0.2-0.8); MONOCYTES % 4.6 % (4.4-11.3); NEUTROPHILS # (AUTO) 9.4 (2.1-6.9); NEUTROPHILS % 86.4 % (38.7-80.0); PLATELET COUNT 254 x10e3/uL (140-360); RED CELL DISTRIBUTION WIDTH 16.5 % (11.7-14.4)
[2019-01-29 21:59] LABS: BILIRUBIN,URINE NEGATIVE (NEGATIVE); COLOR,URINE YELLOW (YELLOW); KETONES,URINE 1+ (NEGATIVE); LEUKOCYTE ESTERASE ,URINE TRACE (NEGATIVE); NITRITE,URINE NEGATIVE (NEGATIVE); PROTEIN,URINE DIPSTICK NEGATIVE (NEGATIVE); URINE UROBILINOGEN 0.2 mg/dL (0.2 - 1)
[2019-01-29 22:00] LABS: CLARITY,URINE CLEAR (CLEAR)
[2019-01-29 22:23] LABS: ALBUMIN 3.9 g/dL (3.5-5.0); ALBUMIN/GLOBULIN RATIO 0.9 (0.8-2.0); CALCIUM 9.8 mg/dL (8.4-10.2); CREATININE, SERUM 1.24 mg/dL (0.57-1.11)
[2019-01-29] MEDS ORDERED: SODIUM CHLORIDE 0.9% 1000ML 1,000 ML ONE (22:25)
[2019-01-29 22:29] LABS: BACTERIA,URINE FEW /HPF; EPITHELIAL CELLS,URINE FEW /LPF
[2019-01-29] MEDS ORDERED: ONDANSETRON HCL INJ 2MG/ML 2ML 2 MG/ML VIAL IV PRN (23:30)
[2019-01-29] MEDS ORDERED: PIPERACILLIN/TAZO 4.5 GM 100 ML IV ONE (23:30)
[2019-01-29] MEDS ORDERED: PIPERACILLIN/TAZO 4.5 GM 100 ML IV SCH (23:30)
--- NOTE | 2019-01-30 00:14 | Diagnostic Imaging Report ---
EXAM: CT Abdomen and Pelvis WITHOUT contrast INDICATION: Right flank pain COMPARISON: None. TECHNIQUE: Abdomen and pelvis were scanned utilizing a multidetector helical scanner from the lung base to the pubic symphysis without administration of IV contrast. Absence of intravenous contrast decreases sensitivity for detection of focal lesions and vascular pathology. Coronal and sagittal reformations were obtained. Routine protocol was performed. IV CONTRAST: None ORAL CONTRAST: None COMPLICATIONS: None RADIATION DOSE: Total DLP: 681 mGy*cm Estimated effective dose: (DLP x 0.015 x size factor) mSv CTDIvol has been reviewed. It is below the limits set by the Radiation Protocol Committee (RPC). Dose modulation, iterative reconstruction, and/or weight based adjustment of the mA/kV was utilized to reduce the radiation dose to as low as reasonably achievable. FINDINGS: LINES and TUBES: None. LOWER THORAX: Aortic valve calcifications. Bibasilar atelectasis. HEPATOBILIARY: No focal hepatic lesions. No biliary ductal dilation. GALLBLADDER: There are cholecystectomy clips. SPLEEN: No splenomegaly. PANCREAS: No focal masses or ductal dilatation. ADRENALS: No adrenal nodules KIDNEYS/URETERS: Mild right hydroureteronephrosis. No obstructive calculus identified. A 0.2 mm calculus in a right renal inferior pole calyx. Parenchymal calcifications in the right renal inferior pole. Mild right and trace left perinephric fat stranding, can be seen in setting of senescence or renal insufficiency. Scarring and volume loss in the left renal superior pole and right renal inferior pole. GI TRACT: No abnormal distention, wall thickening, or evidence of bowel obstruction. Appendix is normal. PELVIC ORGANS/BLADDER: Hysterectomy. No adnexal masses. Urinary bladder unremarkable.. LYMPH NODES: No lymphadenopathy. VESSELS: There is mild atherosclerotic disease in the aorta and major arterial branches. PERITONEUM / RETROPERITONEUM: No free air or fluid. BONES: Degenerative changes in the spine. Low bone mineral density.. SOFT TISSUES: There is a fat containing para-umbilical hernia. IMPRESSION: 1. Mild right hydroureteronephrosis. No obstructive calculus identified. Recent passage of a nephrolithiasis and right pyelonephritis are considerations. 2. Bilateral renal scarring. 3. Nonobstructive 2 mm right renal calculus. Signed by: Irvin Vee DO on 01/30/2019 12:11 AM
[2019-01-30] MEDS: MORPHINE SULFATE 2 MG/ML SYR 1ML IV PRN (00:36)
--- NOTE | 2019-01-30 04:38 | NUR ---
walking rounds with colin mcwilliams
[2019-01-30] MEDS: ACETAMINOPHEN 325 MG TAB PO PRN ×2 (05:09→19:17)
--- NOTE | 2019-01-30 07:23 | NUR ---
report to jami mcwilliams
--- OUTSIDE RECORDS SUMMARY | 2019-01-30 07:28 | XMS REPORT | Clinical Summary ---
Author Author [facility] Address Unknown Phone Unavailable Care Team Providers Care Wholesale Account Executive Name Role Phone Vashti Bullock MD PCP [...] INFLUENZA VACCINE 12/16/2018 Results Not on fileafter 01/29/2018 Insurance Type Payer Benefit Subscriber ID Effective Phone Address Plan / Dates Group HMO AETNA MEDICARE AETNA xxxxxxxx 2015-P MEDICARE resent HMO/PPO [facility] Advance Directives For more information, please contact: [phone] Patient Certified Alcohol And Drug Counselor Explanation Type Date Recorded Advance Directives, Living Will and Medical Power of Learning Support Services Director
[2019-01-30] MEDS ORDERED: DEXTROSE 50% SYRINGE 50 ML IV PRN (11:15)
[2019-01-30] MEDS ORDERED: HYDRALAZINE HCL 20 MG/ML VIAL IV PRN (11:30)
[2019-01-30] MEDS ORDERED: MELATONIN 5 MG TABLET PO PRN (11:30)
[2019-01-30] MEDS ORDERED: ACETAMINOPHEN/CODEINE 300MG - 30MG TAB PO PRN (11:30)
[2019-01-30] MEDS ORDERED: CEFTRIAXONE SOD 1 GM/NS 50 ML 50 ML IV SCH (12:00)
[2019-01-30] MEDS: INSULIN LISPRO 100 UNIT/1 ML 3ML VIAL SQ SCH ×3 (12:15→21:00)
[2019-01-30] MEDS: GLIMEPIRIDE 2 MG TAB PO SCH (17:02)
--- NOTE | 2019-01-30 18:58 | NUR ---
RECD PT FROM ER VIA BED AAOX3,DENIES PAIN ,TEMP 101.1.IV TO LT FA 20 GAUGE,HOB ELEVATED ,CALL GLEZ IN REACH
--- NOTE | 2019-01-30 19:41 | NUR ---
Blood cultures drawn per MD order. Blood draw from left wrist x1 stick.
--- NOTE | 2019-01-30 19:58 | NUR ---
Received change of shift report from AM nurse. Walking rounds completed.
[2019-01-30 20:45] VITALS: BP 120/80
[2019-01-30] MEDS: ATORVASTATIN 10 MG TAB PO SCH (20:51)
[2019-01-30 21:00] VITALS: BP 120/80
[2019-01-30] MEDS ORDERED: SODIUM CHLORIDE 0.9% 250ML 250 ML ONE (23:38)
[2019-01-30] MEDS: PIPER-TAZ 3.375 GM 50 ML IV SCH (23:45)
[2019-01-30 23:57] VITALS: BP 95/48
[2019-01-31] MEDS ORDERED: RANITIDINE HCL150 M1 PO (00:59)
[2019-01-31] MEDS ORDERED: CYMBALTA30 MG PO (01:02)
[2019-01-31] MEDS ORDERED: PIOGLITAZONE HC45 MG PO (01:04)
[2019-01-31] MEDS ORDERED: HYDROCHLOROTHIA25 MG PO (01:05)
[2019-01-31] MEDS ORDERED: BENTYL10 MG/1 ML PO (01:07)
[2019-01-31] MEDS: SODIUM CHLORIDE 0.9% 1000ML 1,000 ML IV SCH ×2 (03:45→15:20)
[2019-01-31] MEDS ORDERED: SODIUM CHLORIDE 0.9% 1000ML 1,000 ML ONE (03:46)
[2019-01-31 04:45] VITALS: BP 99/43
[2019-01-31] MEDS: PIPER-TAZ 3.375 GM 50 ML IV SCH ×4 (05:27→23:35)
--- NOTE | 2019-01-31 05:44 | NUR ---
Patient resting quitly at this time.
[2019-01-31 05:55] LABS: BASOPHILS % 0.1 % (0.0-1.0); EOSINOPHILS % 0.6 % (0.0-6.0); HEMATOCRIT 37.3 % (34.2-44.1); HEMOGLOBIN 10.9 g/dL (12.0-16.0); LYMPHOCYTES # (AUTO) 1.1 (1.0-3.2); LYMPHOCYTES % 15.5 % (18.0-39.1); MEAN CORPUSCULAR HEMOGLOBIN 25.3 pg (28-32); MEAN CORPUSCULAR HGB CONC 29.2 g/dL (31-35); MEAN CORPUSCULAR VOLUME 86.7 fL (81-99); MONOCYTES # (AUTO) 0.5 (0.2-0.8); MONOCYTES % 7.7 % (4.4-11.3); NEUTROPHILS # (AUTO) 5.3 (2.1-6.9); NEUTROPHILS % 75.7 % (38.7-80.0); PLATELET COUNT 195 x10e3/uL (140-360); RED CELL DISTRIBUTION WIDTH 16.2 % (11.7-14.4)
[2019-01-31 06:10] LABS: ANION GAP 13.7 mmol/L (8-16); BLOOD UREA NITROGEN 13 mg/dL (7-26); BUN/CREATININE RATIO 15 (6-25); CALCIUM 9.6 mg/dL (8.4-10.2); CARBON DIOXIDE 22 mmol/L (22-29); CHLORIDE 107 mmol/L (98-107); CREATININE, SERUM 0.84 mg/dL (0.57-1.11); EST GLOMERULAR FILTRATION RATE > 60 ML/MIN (60-); POTASSIUM 3.7 mmol/L (3.5-5.1); SODIUM 139 mmol/L (136-145)
[2019-01-31 06:19] LABS: GLUCOSE 53 mg/dL (74-118)
--- NOTE | 2019-01-31 06:21 | NUR ---
Lab called to report patient BS at 53. Patient a symptomatic. give patient food and juice. Will recheck.
--- NOTE | 2019-01-31 07:00 | NUR ---
RECEIVED PATIENT RESTING IN BED. NO ACUTE DISTRESS NOTED. CALL LIGHT WITHIN REACH. BED IN THE LOWEST POSITION.
[2019-01-31] MEDS: INSULIN LISPRO 100 UNIT/1 ML 3ML VIAL SQ SCH ×4 (07:30→19:46)
[2019-01-31 07:34] VITALS: BP 104/53
[2019-01-31 07:49] VITALS: BP 104/53
[2019-01-31] MEDS: GLIMEPIRIDE 2 MG TAB PO SCH ×2 (09:00→16:28)
[2019-01-31 11:24] VITALS: BP 118/58
[2019-01-31 15:32] VITALS: BP 104/49
--- NOTE | 2019-01-31 18:54 | NUR ---
REPORT GIVEN TO ONCOMING NURSE. PATIENT IS IN STABLE CONDITION. NO S/S OF PAIN NOTED. CALL LIGHT WITHIN REACH. BED IN THE LOWEST POSITION.
--- NOTE | 2019-01-31 19:29 | NUR ---
Received change of shift report from Am nurse. Patient up in BR. Per family, pt c/o pain. Will assess pain level.
[2019-01-31 20:00] VITALS: BP 134/61
[2019-01-31] MEDS: MORPHINE SULFATE 2 MG/ML SYR 1ML IV PRN (20:03)
[2019-01-31] MEDS: ATORVASTATIN 10 MG TAB PO SCH (20:03)
[2019-02-01] VITALS: BP 110/49
[2019-02-01 04:00] VITALS: BP 119/58
[2019-02-01] MEDS: PIPER-TAZ 3.375 GM 50 ML IV SCH ×3 (05:32→17:44)
[2019-02-01] MEDS: SODIUM CHLORIDE 0.9% 1000ML 1,000 ML IV SCH ×2 (05:33→12:34)
[2019-02-01] MEDS ORDERED: SODIUM CHLORIDE 0.9% 250ML 250 ML ONE (05:53)
[2019-02-01 06:04] LABS: BASOPHILS % 0.2 % (0.0-1.0); EOSINOPHILS # (AUTO) 0.2 (0.0-0.4); EOSINOPHILS % 2.4 % (0.0-6.0); HEMATOCRIT 30.3 % (34.2-44.1); HEMOGLOBIN 9.3 g/dL (12.0-16.0); LYMPHOCYTES # (AUTO) 1.3 (1.0-3.2); LYMPHOCYTES % 20.1 % (18.0-39.1); MEAN CORPUSCULAR HEMOGLOBIN 25.8 pg (28-32); MEAN CORPUSCULAR HGB CONC 30.7 g/dL (31-35); MEAN CORPUSCULAR VOLUME 83.9 fL (81-99); MONOCYTES # (AUTO) 0.4 (0.2-0.8); MONOCYTES % 6.5 % (4.4-11.3); NEUTROPHILS # (AUTO) 4.4 (2.1-6.9); NEUTROPHILS % 70.5 % (38.7-80.0); PLATELET COUNT 199 x10e3/uL (140-360); RED BLOOD COUNT 3.61 x10e6/uL (3.6-5.1); RED CELL DISTRIBUTION WIDTH 16.3 % (11.7-14.4)
[2019-02-01 06:23] LABS: ANION GAP 12.5 mmol/L (8-16); BLOOD UREA NITROGEN 13 mg/dL (7-26); BUN/CREATININE RATIO 16 (6-25); CALCIUM 8.9 mg/dL (8.4-10.2); CARBON DIOXIDE 21 mmol/L (22-29); CHLORIDE 112 mmol/L (98-107); CREATININE, SERUM 0.83 mg/dL (0.57-1.11); EST GLOMERULAR FILTRATION RATE > 60 ML/MIN (60-); GLUCOSE 85 mg/dL (74-118); POTASSIUM 3.5 mmol/L (3.5-5.1); SODIUM 142 mmol/L (136-145)
--- NOTE | 2019-02-01 07:08 | NUR ---
Received patient resting in bed. No acute distress noted. Call light within reach. Bed in the lowest position.
[2019-02-01] MEDS: INSULIN LISPRO 100 UNIT/1 ML 3ML VIAL SQ SCH ×3 (07:30→16:30)
[2019-02-01 08:00] VITALS: BP 136/60
[2019-02-01] MEDS: GLIMEPIRIDE 2 MG TAB PO SCH ×2 (08:30→16:47)
[2019-02-01 10:26] VITALS: BP 136/60
[2019-02-01 12:00] VITALS: BP 133/60
--- NOTE | 2019-02-01 14:28 | NUR ---
ORDER RECEIVED FOR HOME IV ABX;ZOSYN 3.375GM IV Q8HRS X10 DAYS. MET W THE PT AND BEDSIDE NURSE. PT IS BULGARIAN SPEAKING AND MARBELLA ZAVALA TRANSLATES. DISCUSSED CHOICE FOR IV INFUSION COMPANY. PT WOULD LIKE AN AGENCY IN NETWORK W HER INSURANCE; [employer]. CHOICE LETTER WAS SIGNED AND COPY TO PT AND COPY TO THE CHART. REFERRAL WAS FAXED TO [facility] @ OFF: [phone] / FAX: [phone]. NOTIFIED CRIS WHELAN.
[2019-02-01 16:00] VITALS: BP 149/66
--- NOTE | 2019-02-01 16:16 | Diagnostic Imaging Report ---
Chest, 1 view, 02/01/2019. History: PICC placement. Comparison: 01/24/2019. Findings: Left upper extremity PICC terminates in the region of the distal SVC. The cardiomediastinal silhouette and pulmonary vasculature are within normal limits for a portable exam. Linear opacities are present at the lung bases bilaterally. There is no focal consolidation or pleural effusion. Old right-sided rib fracture is again noted. There are no acute osseous or soft tissue abnormalities. Impression: No acute cardiopulmonary abnormality. PICC is in adequate position. Signed by: Carlos Martínez on 02/01/2019 4:12 PM
--- NOTE | 2019-02-01 17:07 | NUR ---
CALL RECEIVED FROM [facility] STATING THE PT IS OT IN NETWORK. REFERRAL WAS SENT TO [facility] @ OFF: [phone] / FAX: [phone]. SPOKE [facility] CARD / TAMARA. AWAITING AUTH.
[2019-02-01] MEDS ORDERED: AUGMENTIN 875-1 EACH PO ×2 (18:29→18:50)
--- NOTE | 2019-02-01 19:30 | NUR ---
Report given to oncoming nurse. Patient is to be discharged home with PO antibiotics. PICC line to left arm DCD with tip intact, pressure applied to site, no bleeding noted. Oncoming nurse to finish up discharge.
--- NOTE | 2019-02-01 19:50 | NUR ---
PATIENT VOICED UNDERSTANDING OF DISCHARGE INSTRUCTIONS, NO SIGNS OF DISTRESS NOTED. PATIENT FAMILY WAS PRESENT AT BEDSIDE, AND PICC LINE WAS REMOVED FROM RIGHT UPPER ARM. PATIENT WAS BANDAGED AT SITE WITH NO SIGNS OF EXCESSIVE BLEEDING. PATIENT WAS TRANSPORTED VIA WHEELCHAIR AND LEFT IN AUTOMOBILE.
[2019-02-02] MEDS ORDERED: HYDROCHLOROTHIAZIDE 25 MG TAB PO SCH (09:00)
[2019-02-02] MEDS ORDERED: LISINOPRIL 10 MG TAB PO SCH (09:00)
--- NOTE | 2019-02-02 17:27 | Discharge Summary ---
ADMISSION DIAGNOSES: 1. Recent right stent removal. 2. Possible urinary tract infection with sepsis. 3. Hypertension with chronic kidney disease 3. 4. Hyperlipidemia. 5. Type 2 diabetes with CKD 3. 6. Obesity, CKD 3. DISCHARGE DIAGNOSES: 1. Recent right stent removal. 2. Possible urinary tract infection with sepsis. 3. Hypertension with chronic kidney disease 3. 4. Hyperlipidemia. 5. Type 2 diabetes with CKD 3. 6. Obesity, CKD 3. HISTORY: The patient has a history of hypertension, type 2 diabetes, hyperlipidemia, kidney stones, CKD 3. SURGICAL HISTORY: Tubal ligation, cholecystectomy. FAMILY HISTORY: The patient's brother has diabetes. SOCIAL HISTORY: Noncontributory. HOSPITAL COURSE: A 73-year-old female with right ureteroscopy and right stent removal with Dr. Wilkerson on 01/28/2019, admits with complaints of right flank pain, which is sharp and intermittent. She denies dysuria and hematuria. On admission, CT of the abdomen and pelvis showed mild right hydroureteronephrosis. No obstructive calculus identified. Recent passage of nephrolithiasis and right pyelonephritis or consideration, bilateral renal scarring, nonobstructing 2 mm right renal calculus. Urine culture was collected. UA showed WBC and trace leukocytes, but the urine culture came back negative. Blood cultures were negative x24 hours. WBC normalized on Zosyn. Urology was consulted, who pulled up the urine culture from the office, which showed E coli, sensitive to Zosyn and intermittent to Augmentin. The patient has now had four days of IV Zosyn. A PICC line was placed for possible long-term antibiotics after speaking with case management, 2 home health companies have already denied IV antibiotics at home, so with Urology's approval, antibiotics were changed to Augmentin 875 q.12 hours x10 days. The patient and family agree to check temperature q.4 hours and come back to the ER if any fever over 100. Vital signs stable, patient afebrile. Patient and daughter understand discharge instructions and agrees to plan. She will follow up with primary care in 1 to [address] Wilkerson within a week. Dictated by Felipa Engel NP MD [facility] /[id number]
== END 2019-02-01 19:38 | disposition home or self-care (01) | DRG 872 ==
LOC: ER 18:29 → ERHOLD 23:24 → MED/SURG3 01-30 18:43
PROVIDERS: ADMIT Internal Medicine; ATTEND Internal Medicine
PROC: 02HV33Z Insertion of Infusion Device into Superior Vena Cava, Percutaneous Approach (ICD-10-PCS; principal; 2019-02-01)
DX: A41.51 Sepsis due to Escherichia coli [E. coli] (principal); N39.0 Urinary tract infection, site not specified; N17.9 Acute kidney failure, unspecified; Z68.41 Body mass index [BMI] 40.0-44.9, adult; E87.1 Hypo-osmolality and hyponatremia; N18.3 Chronic kidney disease, stage 3 (moderate); I12.9 Hypertensive chronic kidney disease with stage 1 through stage 4 chronic kidney disease, or unspecified chronic kidney disease; E11.22 Type 2 diabetes mellitus with diabetic chronic kidney disease; Z79.4 Long term (current) use of insulin; E66.9 Obesity, unspecified; E87.5 Hyperkalemia
CPT/HCPCS: 36415; 36569; 71045; 71046; 74018; 74176; 74420; 80048; 80053; 81001; 82948; 83880; 85025; 87040; 87086; 87186; 93005; 99284; J0696; J2001; J2270; J2405; J2543; J3010; J7030; J7050